=== PATIENT | male | born 1960 ===

== ENCOUNTER 2018-07-30 11:53 | Outpatient (CLI) | payer SELFPAY | END 2018-07-30 11:54 | disposition home or self-care (01) | LOC: C.PAT 11:53 | DX: N18.6 End stage renal disease (principal) ==

== ENCOUNTER 2018-08-07 07:04 | Day surgery (SDC) | payer SELFPAY ==
[2018-07-30 12:28] VITALS: BMI 36.0
[~2018-08-07 07:04] MED LIST: HEPARIN-NS 5,000 UNITS/500 ML 10,000 UNIT/1,000 ML BAG IV ONE; Iohexol 240 200 ML ONE; Vancomycin 1 gm/D5W 200 ml 1 GM/200 ML BAG IVPB ONE
[2018-08-07 08:49] LABS: CALCIUM 8.4 mg/dl (8.6-10.4)
[2018-08-07] MEDS ORDERED: Propofol 10 mg/ml Inj (20 ML) ONE (08:58)
[2018-08-07] MEDS ORDERED: Midazolam 2 MG/2 ML VIAL ONE (08:58)
[2018-08-07] MEDS ORDERED: Rocuronium 10 mg/ml (10 ml) ONE (09:17)
[2018-08-07] MEDS ORDERED: Neostigmine Methylsulfate 3mg/3ml Syringe IV ONE (11:08)
[2018-08-07] MEDS ORDERED: Sodium Chloride 0.9% 500 ML IV ONE (11:08)
[2018-08-07] MEDS ORDERED: HYDROmorphone 0.5 mg/0.5 ml ISec IVP PRN (11:11)
--- NOTE | 2018-08-07 11:16 | PCM.SURG1 ---
Surgeon's Initial Post Op Note - Surgeon's Notes Surgeon: Dr. Rm Blanket Weaver: Dr. Marie PGY-3, Michael Hensley MS3 Type of Anesthesia: General Endo Pre-Operative Diagnosis: End Stage Renal Disease Operative Findings: Attempted L arm AV shunt with exploration however due to difficult anatomy procedure was abandoned Post-Operative Diagnosis: Same Operation Performed: 1) Exploration of Left arm vasculature for attempted L arm AV shunt. 2) Insertion of R IJ permacath Specimen/Specimens Removed: none Estimated Blood Loss: EBL {In ML}: 50 Blood Products Given: N/A Drains Used: No Drains Post-Op Condition: Good Date of Surgery/Procedure: 08/07/18 Time of Surgery/Procedure: 11:16
[2018-08-07 12:27] VITALS: RESP 16
[2018-08-07 14:22] VITALS: BP 127/85; PULSE 85; TEMP 97.6; O2SAT 96
--- NOTE | 2018-08-07 22:14 | OP ---
PROCEDURE DATE: 08/07/2018 PREOPERATIVE DIAGNOSIS: Renal failure. POSTOPERATIVE DIAGNOSIS: Renal failure. PROCEDURES CARRIED OUT: 1. Exploration of left arm artery and vein. 2. Placement of PermCath to right jugular vein. SURGEON: Leonel Rm Jr., MD LEATHER COVERER: Lyndsay Marie DO. ANESTHESIOLOGIST: Ms. Kelley. INDICATIONS: The patient is a 57-year-old man, on dialysis presently, had an attempt made in the left arm with what appeared to be a basilic vein transposition. OPERATIVE FINDINGS: With ultrasound, we scanned the artery and vein of the left arm with a plan of carrying an upper arm loupe. However, after we attempted to dissect this out, there was too much scar tissue even beyond the area of the scar. So even though we were fairly high in the axilla, I could not adequately get a good dissection of the vessels, which would permit me to do the operation and we abandoned it. We then went to the elbow with the intention of, perhaps, performing a standard upper arm loupe brachial to axillary and at this point, the artery was too small to do anything, so I abandoned this at this point after approximately an hour of exploration and exchanged the PermCath that we had in the left neck. DESCRIPTION OF PROCEDURE: The patient was given general anesthesia. Intravenous antibiotics were administered. The ultrasound was marked on the left arm. The problems associated with the vessels were noted. We dissected out the axilla, backed out after we had problems and went to the elbow, backed out again after we had problems with small size of the vessel, and then we simply abandoned this part of the procedure. We then went to the right jugular vein, removed the existing catheter, placed a new one and secured it to the skin. There was excellent flow and inflow. We then terminated the procedure. Blood loss was minimal. Operation carried out was: 1. Exploration of left arm without intervention. 2. PermCath to right jugular vein. Attempts will be made in the future to create a new access in the right arm. Leonel Rm Jr., MD cc: Yoon Cuellar MD
--- NOTE | 2018-08-08 12:54 | RAD ---
Date of service: 08/07/2018 PROCEDURE: Intraoperative Fluoroscopy. HISTORY: END STAGE RENAL DISEASE FINDINGS: Fluoroscopic assistance was provided. Fluoroscopy time = 7 sec. Radiation dose = 1.12 mGy. Please refer to the operative report from BYRON Funk.
== END 2018-08-07 13:25 | disposition home or self-care (01) ==
LOC: C.SDS 07:04
PROVIDERS: ATTEND Surgery Vascular Surgery
DX: I12.0 Hypertensive chronic kidney disease with stage 5 chronic kidney disease or end stage renal disease (principal); N18.6 End stage renal disease; Z99.2 Dependence on renal dialysis
CPT/HCPCS: 35761; 36415; 36556; 80048; J2001; J2250; J2405; J2704; J2710; J3010; J3370; J7030

== ENCOUNTER 2018-08-21 07:10 | Inpatient (IN) | payer SELFPAY ==
[2018-08-21 07:19] VITALS: BMI 34.4
--- NOTE | 2018-08-21 07:53 | C.PDOC ---
History Of Present Illness 57 y/o male comes in to emergency department complaining of a malfunctioning AV shunt since yesterday. Patient states that he tried to have dialysis but was unable to because access was malfunctioning and clogged. Otherwise patient states he feels well and has no complaints at this time. Denies edema, chest pain, SOB, or other symptoms. Time Seen by Provider: 08/21/18 07:36 Chief Complaint (Nursing): Abnormal Skin Integrity History Per: Patient History/Exam Limitations: no limitations Onset/Duration Of Symptoms: Days Current Symptoms Are (Timing): Still Present Past Medical History Reviewed: Historical Data, Nursing Documentation, Vital Signs Vital Signs: Last Vital Signs Temp 98.5 F 08/21/18 07:19 Pulse 93 H 08/21/18 07:19 Resp 18 08/21/18 07:19 BP 166/115 H 08/21/18 07:19 Pulse Ox 96 08/21/18 07:19 - Medical History PMH: Asthma, CHF, Fractures (CRACK LEFT ANKLE 4 YEARS AGO), HTN, Hypercholesterolemia, Hyperlipidemia, Chronic Kidney Disease Surgical History: Appendectomy - [facility] Procedures (06/10/17) FLUOROSCOPY OF R JUGULAR VEIN USING L OSM CONTRAST, GUIDANCE (06/10/17) INSERT INFUSION DEV IN R INT JUGULAR VEIN, PERC (06/10/17) INSERTION OF INFUSION DEVICE INTO LOWER VEIN, PERC APPROACH (06/10/17) Family History: States: No Known Family Hx - Social History Hx Alcohol Use: No Hx Substance Use: No - Immunization History Hx Tetanus Toxoid Vaccination: No Hx Influenza Vaccination: Yes (2016) Hx Pneumococcal Vaccination: Yes (2016) Review Of Systems Except As Marked, All Systems Reviewed And Found Negative. Constitutional: Negative for: Fever, Chills Cardiovascular: Negative for: Chest Pain Respiratory: Negative for: Cough, Shortness of Breath Gastrointestinal: Negative for: Nausea, Vomiting Skin: Negative for: Rash Physical Exam - Physical Exam Appears: Non-toxic, No Acute Distress Skin: Warm, Dry Head: Atraumatic, Normacephalic Oral Mucosa: Moist Neck: Supple Chest: Other (Vidal catheter in right upper chest) Cardiovascular: Rhythm Regular, No Murmur Respiratory: Normal Breath Sounds, No Rales, No Rhonchi, No Wheezing Gastrointestinal/Abdominal: Soft, No Tenderness Extremity: Other (AV fistula in left AC) Extremity: Bilateral: Normal Color And Temperature, Normal ROM Neurological/Psych: Oriented x3, Normal Speech ED Course And Treatment - Laboratory Results Result Diagrams: 08/21/18 08:02 08/21/18 08:02 ECG: Interpreted By Me, Viewed By Me ECG Rhythm: Sinus Rhythm (Normal) Rate From EC O2 Sat by Pulse Oximetry: 96 (RA) Pulse Ox Interpretation: Normal - Other Rad CXR X-Ray: Read By Radiologist Interpretation: FINDINGS: LUNGS: Clear. PLEURA: No pneumothorax or pleural fluid seen. CARDIOVASCULAR: No aortic atherosclerotic calcification present. Cardiomegaly-similar. Mild pulmonary venous congestion-probably similar. Venous access catheter in satisfactory position. OSSEOUS STRUCTURES: Thoracic spondylosis. VISUALIZED UPPER ABDOMEN: Normal. OTHER FINDINGS: Surgical vahid over left axilla. IMPRESSION: Cardiomegaly mild pulmonary venous dawn estion and the venous access catheter satisfactory position. No interval pathology noted. Medical Decision Making Medical Decision Making: Plan: --EKG --Bloodwork --Chest XR --UA Case was discussed with dr. Akers who accepts admission to same day surgery Disposition - Disposition Disposition: HOSPITALIZED Disposition Time: 08:45 Condition: GOOD - Clinical Impression Clinical Impression: ESRD (end stage renal disease) on dialysis, Malfunction of arteriovenous shunt - PA / TELEPHONE AD TAKER / Resident Statement MD/DO has reviewed & agrees with the documentation as recorded. - Scribe Statement The provider has reviewed the documentation as recorded by the Scribe Bridgette Escalona All medical record entries made by the Scribe were at my direction and personally dictated by me. I have reviewed the chart and agree that the record accurately reflects my personal performance of the history, physical exam, medical decision making, and the department course for this patient. I have also personally directed, reviewed, and agree with the discharge instructions and disposition.
[2018-08-21 08:05] LABS: BASO # 0.1 K/uL (0.0-0.2); BASO % 1.3 % (0.0-2.0); EOS # 0.3 K/uL (0.0-0.7); EOS % 3.2 % (0.0-4.0); HEMOGLOBIN 11.5 g/dL (12.0-18.0); LYMPH # 2.1 K/uL (1.0-4.3); LYMPH % 26.2 % (20.0-40.0); MEAN CELL VOLUME 105.8 fL (80.0-94.0); MEAN CORPUSCULAR HEMOGLOBIN 33.7 pg (27.0-31.0); MEAN CORPUSCULAR HGB CONC 31.9 g/dL (33.0-37.0); MEAN PLATELET VOLUME 7.7 fL (7.2-11.7); MONO # 0.6 K/uL (0.0-0.8); MONO % 7.2 % (0.0-10.0); NEUT % 62.1 % (50.0-75.0); NRBC % 0.1 % (0.0-2.0); RBC 3.42 Mil/uL (4.40-5.90); RED CELL DISTRIBUTION WIDTH 14.7 % (11.5-14.5)
--- NOTE | 2018-08-21 08:14 | RAD ---
Date of service: 08/21/2018 PROCEDURE: CHEST RADIOGRAPH, 1 VIEW HISTORY: Pre Op COMPARISON: 07/30/2018 FINDINGS: LUNGS: Clear. PLEURA: No pneumothorax or pleural fluid seen. CARDIOVASCULAR: No aortic atherosclerotic calcification present. Cardiomegaly-similar. Mild pulmonary venous congestion-probably similar. Venous access catheter in satisfactory position. OSSEOUS STRUCTURES: Thoracic spondylosis VISUALIZED UPPER ABDOMEN: Normal. OTHER FINDINGS: Surgical vahid over left axilla IMPRESSION: Cardiomegaly mild pulmonary venous congestion and the venous access catheter satisfactory position. No interval pathology noted.
[2018-08-21 08:18] LABS: PROTHROMBIN TIME 10.6 SECONDS (9.7-12.2)
[2018-08-21 08:22] LABS: ALB/GLOB RATIO 1.3 (1.0-2.1); ALBUMIN 4.1 g/dL (3.5-5.0); CALCIUM 7.8 mg/dl (8.6-10.4)
[2018-08-21] MEDS ORDERED: Lidocaine Hydrochloride 0 ML INJ ONE (13:49)
[2018-08-21] MEDS ORDERED: ceFAZolin 1 gm in NS 0 GM/0 ML BAG IVPB ONE (13:49)
[2018-08-21] MEDS ORDERED: HEPARIN-NS 5,000 UNITS/500 ML 0 UNIT/0 ML BAG IV ONE (13:50)
[2018-08-21] MEDS ORDERED: Lidocaine Hydrochloride 10 ML INJ ONE (16:46)
[2018-08-21] MEDS ORDERED: HEPARIN-NS 5,000 UNITS/500 ML 5,000 UNIT/500 ML BAG IV ONE (16:46)
[2018-08-21] MEDS ORDERED: Iohexol 240 (50 ml) ONE (16:46)
[2018-08-21] MEDS ORDERED: Midazolam 2 MG/2 ML VIAL ONE (16:48)
[2018-08-21] MEDS ORDERED: Vancomycin 1 gm/D5W 200 ml 1 GM/200 ML BAG IVPB ONE (16:49)
--- NOTE | 2018-08-21 17:34 | PCM.SURG1 ---
Surgeon's Initial Post Op Note - Surgeon's Notes Surgeon: yassine Load Blocker: 0 Type of Anesthesia: IV Sedation Anesthesia Administered By: nando Pre-Operative Diagnosis: renal failure Operative Findings: new catheter Post-Operative Diagnosis: same Operation Performed: permacath right jugular( new catheter/ new puncture) Specimen/Specimens Removed: old catheter discarded Estimated Blood Loss: EBL {In ML}: 25 Blood Products Given: N/A Drains Used: No Drains Post-Op Condition: Good Date of Surgery/Procedure: 08/21/18 Time of Surgery/Procedure: 17:34
[2018-08-21] MEDS ORDERED: FERRIC CITRATE PO SCH (18:00)
--- NOTE | 2018-08-21 18:01 | RAD ---
Date of service: 08/21/2018 HISTORY: permacath COMPARISON: Chest radiograph performed approximately 9 hours prior FINDINGS: LUNGS: No active pulmonary disease. PLEURA: No significant pleural effusion identified, no pneumothorax apparent. CARDIOVASCULAR: Aortic atherosclerotic calcifications. Cardiomediastinal silhouette stably enlarged. OSSEOUS STRUCTURES: Unchanged. VISUALIZED UPPER ABDOMEN: Normal. OTHER FINDINGS: Removal of previously seen right sided hemodialysis catheter with new right internal jugular access tunneled hemodialysis catheter with catheter tips in the right atrium. IMPRESSION: Interval placement of right sided tunneled hemodialysis catheter in satisfactory position. No appreciable pneumothorax.
[2018-08-21 22:04] VITALS: RESP 20
[2018-08-22 08:29] VITALS: TEMP 98.6
--- NOTE | 2018-08-22 09:40 | CP.PCM.DIS ---
Provider - Provider Date of Admission: 08/21/18 17:35 Attending physician: Leonel Rm Jr, MD Consults: 08/21/18 17:38 Physician Consult Routine Comment: Consulting Provider: Yoon Cuellar Consulting Physician: Yoon Cuellar Reason for Consult: needs dialysis today Time Spent in preparation of Discharge (in minutes): 20 Diagnosis - Discharge Diagnosis (1) ESRD (end stage renal disease) on dialysis Status: Resolved Comment: Malfunctioning HD access Hospital Course - Lab Results Lab Results: Most Recent Lab Values WBC 8.0 K/uL (4.8-10.8) 08/21/18 08:02 RBC 3.42 Mil/uL (4.40-5.90) L 08/21/18 08:02 Hgb 11.5 g/dL (12.0-18.0) L 08/21/18 08:02 Hct 36.1 % (35.0-51.0) 08/21/18 08:02 MCV 105.8 fL (80.0-94.0) H 08/21/18 08:02 MCH 33.7 pg (27.0-31.0) H 08/21/18 08:02 MCHC 31.9 g/dL (33.0-37.0) L 08/21/18 08:02 RDW 14.7 % (11.5-14.5) H 08/21/18 08:02 Plt Count 211 K/uL (130-400) 08/21/18 08:02 MPV 7.7 fL (7.2-11.7) 08/21/18 08:02 Neut % (Auto) 62.1 % (50.0-75.0) 08/21/18 08:02 Lymph % (Auto) 26.2 % (20.0-40.0) 08/21/18 08:02 Parmer % (Auto) 7.2 % (0.0-10.0) 08/21/18 08:02 Eos % (Auto) 3.2 % (0.0-4.0) 08/21/18 08:02 Baso % (Auto) 1.3 % (0.0-2.0) 08/21/18 08:02 Neut # (Auto) 5.0 K/uL (1.8-7.0) 08/21/18 08:02 Lymph # (Auto) 2.1 K/uL (1.0-4.3) 08/21/18 08:02 Parmer # (Auto) 0.6 K/uL (0.0-0.8) 08/21/18 08:02 Eos # (Auto) 0.3 K/uL (0.0-0.7) 08/21/18 08:02 Baso # (Auto) 0.1 K/uL (0.0-0.2) 08/21/18 08:02 PT 10.6 SECONDS (9.7-12.2) 08/21/18 08:02 INR 1.0 08/21/18 08:02 APTT 34 SECONDS (21-34) 08/21/18 08:02 Sodium 138 mmol/L (132-148) 08/21/18 08:02 Potassium 5.6 mmol/L (3.6-5.2) H 08/21/18 08:02 Chloride 102 mmol/L (98-107) 08/21/18 08:02 Carbon Dioxide 19 mmol/L (22-30) L 08/21/18 08:02 Anion Gap 22 (10-20) H 08/21/18 08:02 BUN 66 mg/dL (9-20) H 08/21/18 08:02 Creatinine 13.8 mg/dL (0.8-1.5) H* D 08/21/18 08:02 Est GFR ( Amer) 5 08/21/18 08:02 Est GFR (Non-Af Amer) 4 08/21/18 08:02 Random Glucose 87 mg/dL (75-110) 08/21/18 08:02 Calcium 7.8 mg/dl (8.6-10.4) L 08/21/18 08:02 Total Bilirubin 0.4 mg/dL (0.2-1.3) 08/21/18 08:02 AST 20 U/L (17-59) 08/21/18 08:02 ALT 16 U/L (21-72) L 08/21/18 08:02 Alkaline Phosphatase 64 U/L (38-126) 08/21/18 08:02 Total Protein 7.1 g/dL (6.3-8.3) 08/21/18 08:02 Albumin 4.1 g/dL (3.5-5.0) 08/21/18 08:02 Globulin 3.0 gm/dL (2.2-3.9) 08/21/18 08:02 Albumin/Globulin Ratio 1.3 (1.0-2.1) 08/21/18 08:02 - Hospital Course Hospital Course: 57M presented for revision of his HD access. Had a replacement of his R IJ permacath and did well post op. Ok for DC on POD#1. Discharge Exam - Head Exam Head Exam: ATRAUMATIC, NORMOCEPHALIC - Eye Exam Eye Exam: EOMI. absent: Scleral icterus - Respiratory Exam Respiratory Exam: Respiratory Distress. absent: NORMAL BREATHING PATTERN - Cardiovascular Exam Cardiovascular Exam: +S1, +S2 - GI/Abdominal Exam GI & Abdominal Exam: Soft. absent: Distended, Tenderness - Neurological Exam Neurological exam: Alert, Oriented x3 - Skin Skin Exam: Dry, Warm Discharge Plan - Follow Up Plan Condition: GOOD Disposition: HOME/ ROUTINE Instructions: Renal Failure Diet (DC) Additional Instructions: OK to Shower in 24 hours. keep dressing dry. Regular Diet. Call for Fever more than 101, continued bleeding from surgical site, or pain uncontrolled by tylenol. Take care when elevating arm above head for 1 week. Follow up with Dr. Rm in 2 weeks.
[2018-08-22] MEDS ORDERED: Multivitamin Vitamin B Complex (Nephro-Vite) Tab PO SCH (10:00)
[2018-08-22 10:21] VITALS: BP 157/86; PULSE 73
[2018-08-22] MEDS ORDERED: Influenza Vaccine 60 mcg/0.5 mL SYR (4YR UP) IM ONE (11:45)
--- NOTE | 2018-08-22 14:19 | RAD ---
Date of service: 08/21/2018 PROCEDURE: Intraoperative Fluoroscopy. HISTORY: RENAL FAILUR/MALFUCTION PERMA CATH FINDINGS: Fluoroscopic assistance was provided for PermCath check. Please refer to the operative report from BYRON Funk. 16.5 sec of fluoroscopy time was utilized with acute radiation dose of 15.92 mGy.
[2018-08-26 13:57] VITALS: O2SAT 96
--- NOTE | 2018-08-27 07:45 | OP ---
PROCEDURE DATE: 08/21/2018 PREOPERATIVE DIAGNOSIS: Malfunctioning Permacath. POSTOPERATIVE DIAGNOSIS: Malfunctioning Permacath. PROCEDURE CARRIED OUT: Placement of Permacath right jugular vein. The patient previously had a Permacath placed, attempts made to access in his left arm which were unsuccessful. OPERATIVE FINDINGS: The old catheter is removed using ultrasound guidance. The right jugular vein was cannulated using micropuncture technique. The wire was inserted centrally and the catheter was inserted deep into the inferior vena cava, because the previous catheter and superior vena cava had poor flow, suspected to be related to clotting. At the end of the procedure, the catheter originated on the right chest wall, went to the jugular vein and terminated in superior vena cava. This was done via new puncture. Ultrasound imaging the access vein was approximately 16 mm in diameter with normal compressibility. The present catheter was identified and that was also removed. Leonel Rm Jr., MD
== END 2018-08-22 12:29 | disposition home or self-care (01) | DRG 466 ==
LOC: C.ER 07:10 → C.5S 07:10 → C.SDS 09:04 → C.5S 17:35
PROVIDERS: ADMIT Surgery Vascular Surgery; ATTEND Surgery Vascular Surgery
PROC: B548ZZA Ultrasonography of Superior Vena Cava, Guidance (ICD-10-PCS; 2018-08-21)
PROC: 02PYX3Z Removal of Infusion Device from Great Vessel, External Approach (ICD-10-PCS; 2018-08-21)
PROC: 02HV33Z Insertion of Infusion Device into Superior Vena Cava, Percutaneous Approach (ICD-10-PCS; principal; 2018-08-21 17:30)
DX: T82.41XA Breakdown (mechanical) of vascular dialysis catheter, initial encounter (principal); N18.6 End stage renal disease; I13.2 Hypertensive heart and chronic kidney disease with heart failure and with stage 5 chronic kidney disease, or end stage renal disease; Y71.2 Prosthetic and other implants, materials and accessory cardiovascular devices associated with adverse incidents; Z99.2 Dependence on renal dialysis; E78.00 Pure hypercholesterolemia, unspecified; E78.5 Hyperlipidemia, unspecified; I50.9 Heart failure, unspecified; J45.909 Unspecified asthma, uncomplicated

== ENCOUNTER 2018-09-11 08:09 | Day surgery (SDC) | payer SELFPAY ==
[2018-09-11 09:23] LABS: CALCIUM 8.2 mg/dl (8.6-10.4)
[2018-09-11] MEDS ORDERED: Propofol 10 mg/ml Inj (20 ML) ONE (10:38)
[2018-09-11] MEDS ORDERED: Midazolam 2 MG/2 ML VIAL ONE (10:39)
[2018-09-11] MEDS ORDERED: ceFAZolin 1 gm in NS 0 GM/0 ML BAG IVPB ONE (10:48)
[2018-09-11] MEDS ORDERED: Lidocaine Hydrochloride 0 ML INJ ONE (10:49)
[2018-09-11] MEDS ORDERED: HEPARIN-NS 5,000 UNITS/500 ML 5,000 UNIT/500 ML BAG IV ONE (10:51)
[2018-09-11] MEDS ORDERED: Vancomycin 1 gm/D5W 200 ml 1 GM/200 ML BAG IVPB ONE (11:21)
[2018-09-11] MEDS ORDERED: HYDROmorphone 0.5 mg/0.5 ml ISec IVP PRN (12:43)
--- NOTE | 2018-09-11 13:12 | PCM.SURG1 ---
Surgeon's Initial Post Op Note - Surgeon's Notes Surgeon: Dr. Rm Junior Accounting Clerk: Dr. Ghosh PGY3 Type of Anesthesia: General LMA Pre-Operative Diagnosis: ESRD on HD Operative Findings: see dictation Post-Operative Diagnosis: same Operation Performed: Right brachio-basilic AV fistula Specimen/Specimens Removed: none Estimated Blood Loss: EBL {In ML}: 10 Blood Products Given: N/A Drains Used: No Drains Post-Op Condition: Good Date of Surgery/Procedure: 09/11/18 Time of Surgery/Procedure: 13:12
[2018-09-11 14:20] VITALS: PULSE 105; TEMP 97.6; O2SAT 95
[2018-09-11 16:57] VITALS: BP 116/77; RESP 18
--- NOTE | 2018-09-11 23:16 | OP ---
PROCEDURE DATE: 09/11/2018 PREOPERATIVE DIAGNOSIS: Renal failure. POSTOPERATIVE DIAGNOSIS: Renal failure. PROCEDURE CARRIED OUT: Brachial-antecubital vein fistula, right elbow. SURGEON: Leonel Rm Jr., MD QC ANALYST: Keli Ghosh DO ANESTHESIOLOGIST: Mack Britt CRNA INDICATIONS: The patient is a man with multiple access failures in his left arm, presenting now with need for permanent access. He has an indwelling catheter in the right jugular vein. OPERATIVE FINDINGS: There is a good vein, there is a good artery. This led into the basilic vein, but also run into forearm veins,which may mature for dialysis. This is a bidirectional brachial-antecubital vein fistula. DESCRIPTION OF PROCEDURE: The patient was given general anesthesia and intravenous antibiotics. The veins were marked. An incision was made to expose both the artery and the vein. Heparin was given. The vessels were controlled. A [id number] fistula with the direction to the distal valves was then carried out. After obtaining hemostasis, this was done using loupe magnification, heparin anticoagulation, and vessel loop control. After this had been carried out, we then closed the wounds with Monocryl and Vicryl sutures, nylon sutures were applied to the skin. BLOOD LOSS: Less than 20 mL. Leonel Rm Jr., MD cc:
== END 2018-09-11 14:45 | disposition home or self-care (01) ==
LOC: C.SDS 08:09
PROVIDERS: ATTEND Surgery Vascular Surgery
DX: N18.6 End stage renal disease (principal); Z99.2 Dependence on renal dialysis
CPT/HCPCS: 36415; 36821; 80048; J1644; J2250; J2704; J3010; J3370

== ENCOUNTER 2018-11-13 06:05 | Day surgery (SDC) | payer OTHER, SELFPAY ==
[2018-11-13 06:53] VITALS: RESP 18
[2018-11-13 06:54] LABS: BASO # 0.1 K/uL (0.0-0.2); BASO % 0.8 % (0.0-2.0); EOS # 0.1 K/uL (0.0-0.7); HEMOGLOBIN 12.3 g/dL (12.0-18.0); LYMPH # 1.5 K/uL (1.0-4.3); LYMPH % 20.8 % (20.0-40.0); MEAN CELL VOLUME 96.8 fL (80.0-94.0); MEAN CORPUSCULAR HEMOGLOBIN 31.6 pg (27.0-31.0); MEAN CORPUSCULAR HGB CONC 32.7 g/dL (33.0-37.0); MEAN PLATELET VOLUME 8.1 fL (7.2-11.7); MONO # 0.5 K/uL (0.0-0.8); MONO % 7.7 % (0.0-10.0); NEUT # 4.9 K/uL (1.8-7.0); NEUT % 68.7 % (50.0-75.0); RBC 3.9 Mil/uL (4.40-5.90); RED CELL DISTRIBUTION WIDTH 16.3 % (11.5-14.5); WHITE BLOOD COUNT 7.1 K/uL (4.8-10.8)
[2018-11-13 06:55] VITALS: BMI 37.3
[2018-11-13] MEDS ORDERED: HEPARIN-NS 5,000 UNITS/500 ML 5,000 UNIT/500 ML BAG IV ONE (07:08)
[2018-11-13] MEDS ORDERED: Clindamycin 600mg/50ml NS 0 MG/0 ML BAG IVPB ONE (07:08)
[2018-11-13] MEDS ORDERED: Propofol 10 mg/ml Inj (20 ML) ONE (07:37)
[2018-11-13] MEDS ORDERED: Midazolam 2 MG/2 ML VIAL ONE (07:37)
[2018-11-13] MEDS ORDERED: Etomidate 20 mg/10ml Inj IV ONE (07:41)
[2018-11-13] MEDS ORDERED: Vancomycin 1 gm/D5W 200 ml 1 GM/200 ML BAG IVPB ONE (08:06)
[2018-11-13] MEDS ORDERED: HYDROmorphone 0.5 mg/0.5 ml ISec IVP PRN (09:58)
[2018-11-13] MEDS ORDERED: Oxycodone/Acetaminophen 5/325 mg Tab PO PRN (10:00)
--- NOTE | 2018-11-13 10:00 | PCM.SURG1 ---
Surgeon's Initial Post Op Note - Surgeon's Notes Surgeon: Dr. Rm Tobacco Prizer: Dr. malagon Type of Anesthesia: General LMA Pre-Operative Diagnosis: ESRD, AVF Basilic Vein Operative Findings: patent AVF with +thrill Post-Operative Diagnosis: same Operation Performed: revision of right arm AVF with basilic vein transposition Specimen/Specimens Removed: none Estimated Blood Loss: EBL {In ML}: 50 Blood Products Given: N/A Drains Used: No Drains Post-Op Condition: Good Date of Surgery/Procedure: 11/13/18 Time of Surgery/Procedure: 09:59
[2018-11-13 12:31] VITALS: BP 139/73; PULSE 83; TEMP 97.5; O2SAT 96
--- NOTE | 2018-11-13 18:46 | OP ---
PROCEDURE DATE: 11/13/2018 PREOPERATIVE DIAGNOSIS: Immature fistula, right arm. POSTOPERATIVE DIAGNOSIS: Immature fistula, right arm. PROCEDURE CARRIED OUT: Revision of arteriovenous fistula, right arm with creation of basilic vein transposition fistula. SURGEON: Leonel Rm Jr., MD ROAD SUPERVISOR OF ENGINES: Dr. Maradiaga. ANESTHESIOLOGIST: Dr. Acevedo. TYPE OF ANESTHESIA: General anesthesia. INDICATIONS: The patient is a middle-aged man with renal insufficiency, presently dialyzed by means of a catheter. OPERATIVE FINDINGS: The patient previously had a basilic vein fistula created. This is not matured and it is too deep under the skin to allow for access. 1. The fistula was of good size measuring approximately 8 mm and was elevated under the skin. 2. Due to the patient's body habitus, it is not particularly long, but it is at least 14 cm in length of accessible fistula. DESCRIPTION OF PROCEDURE: The patient was given general anesthesia, intravenous antibiotics, and Venodyne boots were used. Ultrasound was done to bridger out the vein. We then dissected out the vein from the elbow to the axilla, elevated into the subcutaneous tissues after closing this and then closed the skin with skin clips. Blood loss was about 50 mL. There were no operative complications or problems. OPERATION CARRIED OUT: Revision of arteriovenous fistula, right arm with basilic vein transposition of fistula. Leonel Rm Jr., MD
== END 2018-11-13 12:50 | disposition home or self-care (01) ==
LOC: C.SDS 06:05
PROVIDERS: ATTEND Surgery Vascular Surgery
DX: N18.6 End stage renal disease (principal)
CPT/HCPCS: 36415; 36819; 80048; 85025; J2001; J2250; J2704; J3010; J3370